=== PATIENT | male | born 1950 | race American Indian/Alaskan Native ===

== ENCOUNTER 2017-01-05 15:04 | Outpatient (CLI) | payer MEDICARE ==
--- NOTE | 2017-01-05 16:18 | XRay Report ---
AP pelvis and bilateral hips: Hip pain. There is bone to bone articulation of the superior and medial right hip joint with subchondral erosions involving the femoral head. Superolateral and inferior articular spurs are present involving the acetabulum and inferior femoral head. There is moderate narrowing of the superior right hip joint medially and virtual bone to bone articulation of the lateral superior joint. Inferior and lateral femoral head spurs are noted. The pelvis is not otherwise remarkable. The SI joints appear intact. Impressions: Severe bilateral hip joint degenerative changes.
== END 2017-01-05 15:05 | disposition home or self-care (01) ==
LOC: SPVIMAG 15:04
DX: M16.0 Bilateral primary osteoarthritis of hip (principal)
CPT/HCPCS: 73521

== ENCOUNTER 2017-05-19 14:34 | Outpatient (CLI) | payer MEDICARE ==
--- NOTE | 2017-05-19 18:39 | XRay Report ---
FINAL REPORT PROCEDURE: XR HIPS BILAT 2V W/PELVIS TECHNIQUE: Bilateral hip radiographs, 2 views each, including AP view of the pelvis. HISTORY: Bilateral hip pain. COMPARISON: No prior studies are available for comparison. FINDINGS: Fracture (s) and/or Dislocation(s): None . Joint space(s): Moderate to severe narrowing of the right hip joint with subchondral cystic changes and mild sclerosis. Similar mild to moderate changes seen in the left hip. Small osteophytes in the hips bilaterally. Soft tissues: Embolization coils in the pelvis. Bone mineralization: Normal. Foreign bodies: None. IMPRESSION: Degenerative changes of the bilateral hips, moderate severe on the right and [id number] on the left.
== END 2017-05-19 14:35 | disposition home or self-care (01) ==
LOC: SPVIMAG 14:34
PROVIDERS: ATTEND Orthopaedic Surgery Sports Medicine
DX: M16.0 Bilateral primary osteoarthritis of hip (principal)
CPT/HCPCS: 73521

== ENCOUNTER 2018-10-17 08:17 | Outpatient (CLI) | payer MEDICARE ==
[2018-10-17 09:45] LABS: Blood Urea Nitrogen 20 mg/dL (9-20)
--- NOTE | 2018-10-17 13:32 | Cat Scan Report ---
CTA CHEST WITH IV CONTRAST INDICATION: I77.810) ASCENDING AORTA DILATATION/I77.810) DILATED AORRTA ROOT. TECHNIQUE: Axial CT images were obtained through the chest after injection of IV contrast. 3 plane MIP reconstru ctions were produced. All CT scans at this location are performed using CT dose reduction for ALARA b y means of automated exposure control. COMPARISON: None available. FINDINGS: Pulmonary Arteries: No pulmonary emboli. Thoracic Aorta: No acute abnormality. AP diameter of the mid ascending thoracic aorta is 4.5 cm (seri es 2 image 45). Aortic root measures 3.8 cm on coronal image 57. Mid aortic arch measures 2.8 cm on s agittal image 67. Mid descending thoracic aorta measures 3.4 cm on axial image 57. There is no signif icant atherosclerotic calcification in the thoracic aorta. Heart: Cardiomegaly. No pericardial effusion. Coronary Arteries: No significant calcification. Lungs: No acute air space or interstitial disease. Pleura: No pleural effusion. No pneumothorax. Lymph Nodes: No significant adenopathy. Additional Findings: None. Upper Abdomen: No acute findings. Skeletal Structures: No acute osseous abnormality. Advanced degenerative changes are noted at the [facility], this is incompletely evaluated on this exam. IMPRESSION: 1. Ascending thoracic aorta is ectatic measuring 4.5 cm in AP diameter. No significant atheroscleroti c calcification. Additional measurements as above. 2. No acute findings. 3. Cardiomegaly. Signer Name: Js Urias MD Signed: 10/17/2018 1:27 PM Workstation Name: [id number]
== END 2018-10-17 08:18 | disposition home or self-care (01) ==
LOC: CT 08:17
PROVIDERS: ATTEND Internal Medicine Cardiovascular Disease
DX: I77.810 Thoracic aortic ectasia (principal); I51.7 Cardiomegaly
CPT/HCPCS: 36415; 71275; 82565; 84520